=== PATIENT | female | born 1960 | race Caucasian/White ===

== ENCOUNTER 2018-09-30 21:14 | Observation (INO) ==
--- NOTE | 2018-09-30 23:59 | Internal Med History&Physical ---
<Remedios Padron N - Last Filed: 10/01/18 02:12> Date of Encounter: 10/01/18 Time of Encounter: 23:59 Internal Medicine - H&P: HPI Chief complaint: Right LE cellulitis Admitted From: Hospital to Hospital Transfer History of present illness: Ms. Weiner is a 58 year old female with a medical history significant for IV drug use (last used approximately 6 years ago) and prior gastric bypass surgery. Her recent medical history is also significant for lesion in her spine, for which she was referred to oncology by her PCP. She reports that biopsy of this area was unable to be obtained, and she was instructed to follow up with oncology in approximately 6 months; however, she states that she has not had a follow-up appointment as she was not comfortable with this plan after having observed a family member who from cancer less than 3 months after diagnosis. Patient arrived at [facility] as a transfer from the ED at [facility] due to right lower extremity redness, swelling, and tenderness. She states that she scratched her leg on a mental broomstick while cleaning approximately 4 days ago. She states that the area began showing signs of infection within 24 hours of the injury. She received a dose of clindamycin while in the ED. Laboratory studies performed at [facility] demonstrated elevated white blood cell count of 14.7. Labs also showed a severe hypokalemia, prompting patient transfer to [facility] for further evaluation and management. Initial vital signs obtained upon arrival to [facility] were as follows: temperature 98.3, HR 99, RR 16, BP 121/77, and pulse oximetry 95%. Repeat laboratory studies were significant for the following abnormalities: WBC 16.2, hemoglobin 10.7, hematocrit 31.8, sodium 133, potassium 3.0, calcium 7.1, magnesium 1.4, and alkaline phosphatase 127. Patient was started on antibiotic therapy with v ancomycin. Due to her penicillin allergy, the patient was also started on antibiotic therapy with aztreonam. Patient was seen and evaluated at the bedside. She reports noticing development of enlarged, tender supraclavicular, axillary, and inguinal lymph nodes that coincides with development of her right leg infection. She reports having had similar infections in her legs in the past, and reports that her legs often swell. ROS is significant for recent unintentional weight loss, decreased appe tite, subjective chills/fever, intermittent dizziness, sinus congestion, and nonproductive cough. She reports pain in her right lower extremity that is worse with ambulation, and voices pain when attempting to move that extremity. She denies any other acute complaints or concerns at this time. Past Med Surg Social Fam HX - Past Medical History Medical history: no medical history Additional medical history: pneumonia 05/07/16 Psychiatric history: no psych history - Past Surgical History Surgical History: appendectomy, cholecystectomy, hysterectomy, other Additional surgical history: gastric by-pass, L knee surgery - Social History Smoking Status: Current every day smoker Smokeless Tobacco Status: No Alcohol use: none Drug use: IV Drug Use (Last used ~6 years ago) Internal Medicine - H&P: Meds RX: Buprenorphine HCl [Subutex] 8 mg SL TID 05/07/16 [History] Furosemide [Lasix] 40 mg PO DAILY 09/30/18 [History] Gabapentin [Neurontin] 800 mg PO TID PRN 09/30/18 [History] Potassium Chloride [K-Tab ER] 10 meq PO DAILY 09/30/18 [History] Allergy/AdvReac Type Severity Reaction Status Date / Time Penicillins Allergy Intermediate Swelling Verified 05/07/16 18:11 of Lip/Tongue/Throat All Systems PM: A 10-system review of systems was performed and is negative for pertinent findings except as documented above in the HPI. - Constitutional Exam: GENERAL: Pleasant female resting in bed comfortably. She does not appear to be in acute distress. HEENT: Atraumatic and normocephalic. CARDIOVASCULAR: Regular rate and rhythm. S1 and S2 present. No murmurs, gallops, or rubs appreciated. RESPIRATORY: Wheezes and coarse respiratory sounds bilaterally. Chest rises and falls symmetrically with respiration. No accessory muscle use noted. GASTROINTESTINAL: Active bowel sounds x4 quadrants. Abdomen is soft, nontender, and nondistended. EXTREMITIES: 1+ pitting edema in bilateral LE. Right lower extremity is erythematous at and distal to the knee, with increased warmth and edema. Patient is tender to palpation and with movement of the right LE. LYMPH NODES: Tender enlarged supraclavicular, axillary, and inguinal lymph nodes bilaterally. SKIN: Warm, dry, and intact. NEUROLOGIC: Alert and oriented x 3. Patient is cooperative with exam and answers questions appropriately. No apparent focal deficits. Internal Med - H&P Results - Labs CBC & Chem 7: 10/01/18 00:59 10/01/18 00:59 - Assessment and plan (1) Cellulitis Current Visit: No Status: Acute Assessment and plan: Patient has extensive right lower extremity erythema, warmth, and edema. WBC count was elevated at 14.7 at [facility]; repeat CBC demonstrated further elevated WBC count of 16.2. - Continue vancomycin - Aztreonam 200mg IVPB Q8H - CT of right lower extremity pending Qualifiers: Site of cellulitis: extremity Site of cellulitis of extremity: lower extremity Laterality: right Qualified Code(s): L03.115 - Cellulitis of right lower limb (2) Hypokalemia Current Visit: No Status: Acute Assessment and plan: Likely secondary to increased dose of lasix without concomitant increase in supplemental potassium. - Received 50mEq kaylite and 10mEq KCl at [facility] - Additional 40mEq KCl rider pending administration - Repeat electrolyte panel after further KCl administration is complete - Telemetry monitoring for arrhythmias (3) Hypocalcemia Current Visit: Yes Status: Acute Assessment and plan: Serum calcium 7.1, with ionized calcium of 1.02. - Supplementation with calcium gluconate - Repeat electrolyte panels after administration (4) DVT prophylaxis Current Visit: Yes Status: Acute Assessment and plan: - Heparin 5000units SQ Q8H - Time Spent With Patient Total time spent is greater than 50% in coordination of care (as documented) at patient's floor/unit and/or counseling patient: Kristen Vazquez - Last Filed: 10/01/18 03:06> Date of Encounter: 10/01/18 Internal Medicine - H&P: HPI History of present illness: Ms. Weiner is a 58 year old female All Systems PM: A 10-system review of systems was performed and is negative for pertinent findin gs except as documented above in the HPI. - Constitutional Vitals: Temp Pulse Resp BP Pulse Ox 98.3 F 99 16 121/77 95 09/30/18 23:48 09/30/18 23:48 09/30/18 23:48 09/30/18 23:48 09/30/18 23:48 Internal Med - H&P Results - Labs CBC & Chem 7: 10/01/18 00:59 10/01/18 00:59 Labs: Short CBC 10/01/18 Range/Units 00:59 WBC 16.2 H (4.3-11.1) K/mcL Hgb 10.7 L D (11.5-15.4) g/dL Hct 31.8 L (35.3-44.9) % Plt Count 263 (140-400) K/mcL Neutrophils # 14.9 H (1.6-8.9) K/mcL BMP 10/01/18 00:59 Sodium 133 L Potassium 3.0 L Chloride 98 Carbon Dioxide 27 BUN 21 H Creatinine 0.88 Glucose 83 Calcium 7.1 L Liver Function 10/01/18 Range/Units 00:59 Total Bilirubin 0.4 (0.3-1.0) mg/dL AST 8 L (13-39) Units/L ALT 13 (7-52) Units/L Alkaline Phosphatase 127 H (34-104) Units/L Albumin 1.8 L (3.5-5.7) g/dL - Assessment and plan (1) Cellulitis Current Visit: No Status: Acute Qualifiers: Site of cellulitis: extremity Site of cellulitis of extremity: lower extremity Laterality: right Qualified Code(s): L03.115 - Cellulitis of right lower limb (2) Hypokalemia Current Visit: No Status: Acute (3) Hypocalcemia Current Visit: Yes Status: Acute (4) DVT prophylaxis Current Visit: Yes Status: Acute - Time Spent With Patient Total time spent is greater than 50% in coordination of care (as documented) at patient's floor/unit and/or counseling patient: - Attending Attestation Amada Weiner is a 58-year-old woman who reports a past history of substance abuse for which she is now on Suboxone therapy who presents on transfer from [facility] due to right lower extremity redness, swelling and pain. She states that it started after suffering a scratch from a metallic end of a broom stick about 4 days ago and the subsequent day started seeing these inflammatory signs. Last night and [facility] emergency room she was given 1 dose of clindamycin, seen to have severe hypokalemia and some leukocytosis and was referred here for further care. On my assessment she is in no acute distress. She incidentally reports having multiple enlarged lymph nodes of recent in addition to weight loss which she is yet to see a physician about. Her physical exam is remarkable for right lower leg diffuse swelling in erythema with a centimeter sized puncture area on the anterior aspect with active suppuration. Exquisitely tender to touch but no crepitus elicited. Her affect is appropriate and rest of physical exam is documented above by the resident. No reported family history of recurrent infections. We will admit for sepsis due to skin and soft tissue infection. The patient should undergo contrast CT of the leg due to the severity of the current condition and rule out underlying abscess or retained foreign body. Should also undergo Doppler studies to rule out thrombosis that may be a subsequent complication. Escalate antibiotics to vancomycin to cover staph and strep species and we will place on aztreonam for now for gram-negative coverage to include Pseudomonas given the foreign body trauma. Pain control and DVT prophylaxis ordered. Hypocalcemia, hypokalemia and hypomagnesemia are noted should be supplemented accordingly. AKHIL CASAS.
[2018-10-01] MEDS ORDERED: Naloxone 0.4 MG/ML INJ IVP PRN (00:16)
[2018-10-01] MEDS ORDERED: Acetaminophen 325 MG TABLET PO PRN (01:01)
[2018-10-01] MEDS ORDERED: *HR* HYDROcodone/Acet 5/325 mg TABLET PO PRN (01:01)
[2018-10-01] MEDS ORDERED: *HR* OxyCODONE Immed Rel 5 MG TABLET PO PRN (01:01)
[2018-10-01] MEDS ORDERED: Ketorolac 30 MG/ML VIAL IVP ONE (01:02)
[2018-10-01] MEDS ORDERED: Isovue-370 500 ML INFUS..BTL IV ONE (01:02)
[2018-10-01 01:15] LABS: VBG Ionized Calcium 1.02 mmol/L (1.15-1.35)
[2018-10-01 01:16] LABS: Basophils % 0.2 %; Eosinophils % 0.2 %; Hematocrit 31.8 % (35.3-44.9); Hemoglobin 10.7 g/dL (11.5-15.4); Immature Granulocytes % 0.6 % (0-4); Lymphocytes # 0.6 K/mcL (0.6-4.6); Lymphocytes % 3.4 %; Mean Corpuscular HGB Conc 33.6 g/dL (31.6-35.5); Mean Corpuscular Hemoglobin 27.9 pg (28.0-33.3); Mean Platelet Volume 9.3 fL (9.4-12.4); Monocytes # 0.7 K/mcL (0.0-1.3); Monocytes % 4.1 %; Neutrophils # 14.9 K/mcL (1.6-8.9); Platelet Count 263 K/mcL (140-400); Red Blood Count 3.83 M/mcL (3.82-4.97); Red Cell Distribution Width 13.7 % (11.5-14.5); Segmented Neutrophils % 91.5 %
[2018-10-01 01:24] LABS: INR 1.2
[2018-10-01 01:36] LABS: Alanine Aminotransferase 13 Units/L (7-52); Albumin 1.8 g/dL (3.5-5.7); Albumin/Globulin Ratio 0.5 (1.1-2.2); Alkaline Phosphatase 127 Units/L (34-104); Aspartate Amino Transferase 8 Units/L (13-39); BUN/Creatinine Ratio 24 (6-26); Bilirubin,Total 0.4 mg/dL (0.3-1.0); Blood Urea Nitrogen 21 mg/dL (6-20); Calcium 7.1 mg/dL (8.6-10.3); Carbon Dioxide 27 mEq/L (23-29); Chloride 98 mEq/L (98-107); Globulin 3.3 g/dL (2.4-3.5); Glucose 83 mg/dL (70-105); Osmolality,Calculated 278 (280-300); Sodium 133 mEq/L (136-145); Total Protein 5.1 g/dL (6.4-8.9); eGFR For Non-African Americans > 60 (> 60)
[2018-10-01] MEDS ORDERED: Potassium Chloride 40 MEQ, Lidocaine 1% 2 ML in D5% in Water 500 ML IVPB ONE (01:50)
[2018-10-01] MEDS ORDERED: Calcium Gluconate 2,000 MG in 0.9 % Sodium Chloride 100 ML IVPB ONE (01:50)
[2018-10-01] MEDS ORDERED: Magnesium Oxide 400 MG TABLET PO ONE (02:36)
[2018-10-01] MEDS ORDERED: Ipratropium/Albuterol Neb 3 ML IH PRN (02:46)
[2018-10-01] MEDS: *HR* Heparin 5,000 UNIT/ML VIAL SQ SCH ×3 (06:03→21:14)
[2018-10-01] MEDS: Aztreonam 2,000 MG in Water for inj. (sterile) 20 ML 20 ML IVPB SCH ×4 (06:03→23:33)
[2018-10-01] MEDS: *HR* Buprenorphine HCl 8 MG TAB.SUBL SL SCH ×3 (07:44→21:14)
--- NOTE | 2018-10-01 09:43 | Internal Med Progress Note ---
Addendum entered and electronically signed by Marlena Giraldo 10/01/18 18:20: (5.) COPD On exam mild wheezes bilaterally, crackles in the right lung, productive cough Plan: On Duoneb PRN Q4H Original Note: <KristalShannenMarlena M - Last Filed: 10/01/18 17:40> Hospitalist Progress Note - Encounter Date of Encounter: 10/01/18 Time of Encounter: 09:25 - Subjective Interval History: Ms. Weiner is a 58Yo F, hospital day 0, PMH IV drug use(last used about 6 years ago), current smoker, COPD, asthma, gastric bypass surgery and a spinal lesion (referred to oncology has not followed up). She presented to [facility] c/o right lower extremity redness, swelling, and tenderness after scratching her leg on a metal broomstick 4 days prior. Pt was seen and examined at bedside today. She denies fever/chills, fatigue, dizziness, NVD, abdominal pain, SOB, chest pain, or decrease in appetite. She does admit to unintentional weight loss, nasal congestion d/t allergies, productive cough with clear/mcbride sputum, she also states she has pain, edema, warmth and redness in her right lower extremity. Pt says she has enlarged lymph nodes in her supraclavicular, inguinal and axillary regions. - Exam Vitals: Temp Pulse Resp BP Pulse Ox 98.6 F 94 15 103/63 99 10/01/18 06:21 10/01/18 06:21 10/01/18 06:21 10/01/18 06:21 10/01/18 06:21 Exam: General: AAOX3, NAD, answers questions appropriately Cardiovascular: RRR, no murmurs, rubs or gallops Respiratory: mild wheezes bilaterally, crackles in the right lung, productive cough Abdomen: normal BS X4, soft, nondistended, nontender to palpation Extremities: 1+ pitting edema in LE bilaterally. Right lower extremity is erythematous distal to the knee, with increased warmth and edema. Patient is tender to palpation and with movement of the right LE. Draining over the mid- tibial region from site of wound. Lymph: enlarged supraclavicular, axillary and inguinal lymph nodes bilaterally Skin: warm dry and intact - Assessment and Plan (1) Cellulitis Current Visit: No Status: Acute Assessment and Plan: Patient has extensive right lower extremity erythema, warmth, and edema. WBC count was elevated at 14.7 at [facility]; repeat CBC demonstrated further elevat ed WBC count of 16.2 CT of RLE showed 'Non-specific severe subcutaneous edema and skin thickening of the right lower extremity. No evidence of abscess. No acute bone or joint abnormality. Moderate tricompartmental osteoarthritis of the knee. There is a 5 x 5 mm irregular cystic lesion in the medial corner of the talar dome likely representing an OCD.' 10/01/18 - Continue vancomycin - Aztreonam 200mg IVPB Q8H - Blood Cx pending (2) Hypokalemia Current Visit: No Status: Acute Assessment and Plan: Likely secondary to increased dose of lasix without concomitant increase in s upplemental potassium. Potassium 3.3 increased from 3.0 10/01/18 - Received 50mEq kaylite and 10mEq KCl at [facility] - given KCl 40 meq PO - Telemetry monitoring for arrhythmias (3) Hypocalcemia Current Visit: Yes Status: Acute Assessment and Plan: Serum calcium 7.6 increased from 7.1, with ionized calcium of 1.02. Plan: -Supplementation with calcium gluconate d/c -Calcium corrected, will continue to monitor as needed (4) DVT prophylaxis Current Visit: Yes Status: Acute Assessment and Plan: heparin SQ - Time Spent with Patient Total time spent is greater than 50% in coordination of care (as documented) at patient's floor/unit and/or counseling patient: Internal Medicine: Result - Labs CBC & Chem 7: 10/01/18 00:59 10/01/18 11:19 Labs: Short CBC 10/01/18 Range/Units 00:59 WBC 16.2 H (4.3-11.1) K/mcL Hgb 10.7 L D (11.5-15.4) g/dL Hct 31.8 L (35.3-44.9) % Plt Count 263 (140-400) K/mcL Neutrophils # 14.9 H (1.6-8.9) K/mcL BMP 10/01/18 00:59 Sodium 133 L Potassium 3.0 L Chloride 98 Carbon Dioxide 27 BUN 21 H Creatinine 0.88 Glucose 83 Calcium 7.1 L Liver Function 10/01/18 Range/Units 00:59 Total Bilirubin 0.4 (0.3-1.0) mg/dL AST 8 L (13-39) Units/L ALT 13 (7-52) Units/L Alkaline Phosphatase 127 H (34-104) Units/L Albumin 1.8 L (3.5-5.7) g/dL - ABG Interpretation ABG results: PT/INR, D-dimer PT 14.0 Seconds (9.4-12.1) H 10/01/18 00:59 Consult Discharge Plan - Plan Referrals: NONE,PCP [Primary Care Provider] - <Rafi Chua - Last Filed: 10/01/18 18:03> Hospitalist Progress Note - Encounter Date of Encounter: 10/01/18 - Exam Vitals: Temp Pulse Resp BP Pulse Ox 98.0 F 91 14 119/76 100 10/01/18 14:20 10/01/18 14:20 10/01/18 14:20 10/01/18 14:20 10/01/18 14:20 - Assessment and Plan (1) Cellulitis Current Visit: No Status: Acute (2) Hypokalemia Current Visit: No Status: Acute (3) Hypocalcemia Current Visit: Yes Status: Acute (4) DVT prophylaxis Current Visit: Yes Status: Acute - Time Spent with Patient Total time spent is greater than 50% in coordination of care (as documented) at patient's floor/unit and/or counseling patient: Internal Medicine: Result - Labs CBC & Chem 7: 10/01/18 00:59 10/01/18 11:19 Labs: Short CBC 10/01/18 Range/Units 00:59 WBC 16.2 H (4.3-11.1) K/mcL Hgb 10.7 L D (11.5-15.4) g/dL Hct 31.8 L (35.3-44.9) % Plt Count 263 (140-400) K/mcL Neutrophils # 14.9 H (1.6-8.9) K/mcL BMP 10/01/18 10/01/18 00:59 11:19 Sodium 133 L 133 L Potassium 3.0 L 3.3 L Chloride 98 96 L Carbon Dioxide 27 32 H BUN 21 H 19 Creatinine 0.88 0.94 Glucose 83 65 L Calcium 7.1 L 7.6 L Liver Function 10/01/18 Range/Units 00:59 Total Bilirubin 0.4 (0.3-1.0) mg/dL AST 8 L (13-39) Units/L ALT 13 (7-52) Units/L Alkaline Phosphatase 127 H (34-104) Units/L Albumin 1.8 L (3.5-5.7) g/dL - ABG Interpretation ABG results: PT/INR, D-dimer PT 14.0 Seconds (9.4-12.1) H 10/01/18 00:59 - Impressions Impressions Lower Extremity CT 10/01/18 10:40 IMPRESSION: Non-specific severe subcutaneous edema and skin thickening of the right lower extremity. Differential includes cellulitis or lymphedema. No evidence of abscess. No acute bone or joint abnormality. Moderate tricompartmental osteoarthritis of the knee. There is a 5 x 5 mm irregular cystic lesion in the medial corner of the talar dome likely representing an OCD. D/ / 10/01/2018 13:15:26 Junior Neri MD / joce Interpreting Provider: Junior Neri MD - Attending Attestation I saw and independently examined and assessed this patient and I agree with plan per medical student as documented above Ms. Weiner is a 58Yo F, hospital day 0, PMH IV drug use(last used about 6 years ago), current smoker, COPD, asthma, gastric bypass surgery and a spinal lesion (referred to oncology has not followed up). She presented to [facility] c/o right lower extremity redness, swelling, and tenderness after scratching her leg on a metal broomstick 4 days prior. Exam General: AAOX3, NAD, answers questions appropriately Cardiovascular: RRR, no murmurs, rubs or gallops Respiratory: mild wheezes bilaterally, crackles in the right lung, productive cough Abdomen: normal BS X4, soft, nondistended, nontender to palpation Extremities: 1+ pitting edema in LE bilaterally. Right lower extremity is erythematous distal to the knee, with increased warmth and edema. Patient is tender to palpation and with movement of the right LE. Draining over the mid- tibial region from site of wound. Lymph: enlarged supraclavicular, axillary and inguinal lymph nodes bilaterally Skin: warm dry and intact Plan Right lower leg cellulitis. Continue on vanc and aztreonam. CT leg showed no acute findings. Follow up blood cultures. Lower extremity ultrasound to r/o DVT Right arm swelling. Ultrasound to r/o DVT Hypokalemia. Replaced Hypomagnesemia. Replaced <Marlena Giraldo - Last Filed: 10/01/18 17:40> (1) Cellulitis Qualifiers: Site of cellulitis: extremity Site of cellulitis of extremity: lower extremity Laterality: right Qualified Code(s): L03.115 - Cellulitis of right lower limb <Rafi Chua - Last Filed: 10/01/18 18:03> (1) Cellulitis Qualifiers: Site of cellulitis: extremity Site of cellulitis of extremity: lower extremity Laterality: right Qualified Code(s): L03.115 - Cellulitis of right lower limb
[2018-10-01 13:09] LABS: BUN/Creatinine Ratio 20 (6-26); Blood Urea Nitrogen 19 mg/dL (6-20); Calcium 7.6 mg/dL (8.6-10.3); Carbon Dioxide 32 mEq/L (23-29); Chloride 96 mEq/L (98-107); Glucose 65 mg/dL (70-105); Magnesium 1.8 mg/dL (1.6-2.6); Osmolality,Calculated 276 (280-300); Phosphorous 3.6 mg/dL (2.7-4.5); Potassium 3.3 mEq/L (3.5-5.1); Sodium 133 mEq/L (136-145); eGFR For Non-African Americans > 60 (> 60)
[2018-10-01] MEDS: Potassium Chloride Elixir 20 MEQ/15 ML UDC PO SCH ×2 (14:26→17:30)
[2018-10-01] MEDS: Ibuprofen 800 MG TABLET PO PRN (14:28)
--- NOTE | 2018-10-01 17:32 | Electrocardiograph Report ---
[place] [id number] Test Date: 2018-10-01 Pat Name: Amada Weiner Department: 115 Room: 3A31 Gender: F [place] Supervisor: : [id number] Requested By: Remedios Padron Order Number: [id number] Reading MD: Tristen Kay Measurements Intervals [place] Rate: 89 P: 56 GA: 164 QRS: 12 QRSD: 104 T: 68 QT: 377 QTc: 424 Interpretive Statements SINUS RHYTHM NONSPECIFIC T-WAVE ABNORMALITY Electronically Signed On 10-01-2018 17:31:21 EST by Tristen Kay
[2018-10-02] MEDS: Ibuprofen 800 MG TABLET PO PRN ×2 (02:00→08:42)
[2018-10-02] MEDS: *HR* Heparin 5,000 UNIT/ML VIAL SQ SCH ×3 (05:04→21:48)
[2018-10-02] MEDS: Aztreonam 2,000 MG in Water for inj. (sterile) 20 ML 20 ML IVPB SCH ×3 (08:31→23:33)
[2018-10-02] MEDS: *HR* Buprenorphine HCl 8 MG TAB.SUBL SL SCH ×3 (08:32→21:47)
[2018-10-02 08:39] LABS: Basophils % 0.2 %; Eosinophils # 0.1 K/mcL (0.0-0.6); Eosinophils % 0.6 %; Hematocrit 29.5 % (35.3-44.9); Hemoglobin 9.6 g/dL (11.5-15.4); Immature Granulocytes % 1.5 % (0-4); Lymphocytes # 0.8 K/mcL (0.6-4.6); Lymphocytes % 8.3 %; Mean Corpuscular HGB Conc 32.5 g/dL (31.6-35.5); Mean Corpuscular Hemoglobin 27.7 pg (28.0-33.3); Mean Platelet Volume 9.2 fL (9.4-12.4); Monocytes # 0.6 K/mcL (0.0-1.3); Monocytes % 5.9 %; Neutrophils # 8.2 K/mcL (1.6-8.9); Platelet Count 234 K/mcL (140-400); Red Blood Count 3.47 M/mcL (3.82-4.97); Red Cell Distribution Width 14.2 % (11.5-14.5); Segmented Neutrophils % 83.5 %
--- NOTE | 2018-10-02 08:46 | Internal Med Progress Note ---
Hospitalist Progress Note - Encounter Date of Encounter: 10/02/18 Time of Encounter: 08:45 - Exam Vitals: Temp Pulse Resp BP Pulse Ox 97.8 F 82 15 99/60 97 10/02/18 06:22 10/02/18 06:22 10/02/18 06:22 10/02/18 06:22 10/02/18 06:22 Exam: General: AAOX3, NAD, answers questions appropriately Cardiovascular: RRR, no murmurs, rubs or gallops Respiratory: mild wheezes bilaterally, crackles in the right lung, productive cough Abdomen: normal BS X4, soft, nondistended, nontender to palpation Extremities: 1+ pitting edema in LE bilaterally. Right lower extremity is erythematous distal to the knee, with increased warmth and edema. Patient is tender to palpation and with movement of the right LE. Draining over the mid- tibial region from site of wound. Lymph: enlarged supraclavicular, axillary and inguinal lymph nodes bilaterally Skin: warm dry and intact - Assessment and Plan (1) Cellulitis Current Visit: No Status: Acute Assessment and Plan: Patient has extensive right lower extremity erythema, warmth, and edema. WBC count was elevated at 14.7 at [facility]; repeat CBC demonstrated further elevated WBC count of 16.2. Leukocytosis resolved today - Continue vancomycin and Aztreonam (2) Hypokalemia Current Visit: No Status: Acute Assessment and Plan: Likely secondary to increased dose of lasix without concomitant increase in supplemental potassium. Replaced (3) Hypocalcemia Current Visit: Yes Status: Acute Assessment and Plan: Replaced (4) Generalized lymphadenopathy Current Visit: Yes Status: Acute Assessment and Plan: Obtain CT chest abdomen and pelvis Oncology consult if positive for malignancy (5) DVT prophylaxis Current Visit: Yes Status: Acute Assessment and Plan: - Heparin 5000units SQ Q8H - Time Spent with Patient Total time spent is greater than 50% in coordination of care (as documented) at patient's floor/unit and/or counseling patient: Internal Medicine: Result - Labs CBC & Chem 7: 10/02/18 07:53 10/02/18 07:54 Labs: Short CBC 10/02/18 Range/Units 07:53 WBC 9.8 (4.3-11.1) K/mcL Hgb 9.6 L (11.5-15.4) g/dL Hct 29.5 L (35.3-44.9) % Plt Count 234 (140-400) K/mcL Neutrophils # 8.2 (1.6-8.9) K/mcL BMP 10/01/18 11:19 Sodium 133 L Potassium 3.3 L Chloride 96 L Carbon Dioxide 32 H BUN 19 Creatinine 0.94 Glucose 65 L Calcium 7.6 L - ABG Interpretation ABG results: PT/INR, D-dimer PT 14.0 Seconds (9.4-12.1) H 10/01/18 00:59 - Impressions Impressions Lower Extremity CT 10/01/18 10:40 IMPRESSION: Non-specific severe subcutaneous edema and skin thickening of the right lower extremity. Differential includes cellulitis or lymphedema. No evidence of abscess. No acute bone or joint abnormality. Moderate tricompartmental osteoarthritis of the knee. There is a 5 x 5 mm irregular cystic lesion in the medial corner of the talar dome likely representing an OCD. D/ / 10/01/2018 13:15:26 Junior Neri MD / joce Interpreting Provider: Junior Neri MD Consult Discharge Plan - Plan Referrals: Sophie Alvares, [employer] [Advanced Practice Nurse] - (1) Cellulitis Qualifiers: Site of cellulitis: extremity Site of cellulitis of extremity: lower extremity Laterality: right Qualified Code(s): L03.115 - Cellulitis of right lower limb
[2018-10-02 08:54] LABS: Alanine Aminotransferase 12 Units/L (7-52); Albumin 1.5 g/dL (3.5-5.7); Albumin/Globulin Ratio 0.5 (1.1-2.2); Alkaline Phosphatase 126 Units/L (34-104); Aspartate Amino Transferase 6 Units/L (13-39); BUN/Creatinine Ratio 23 (6-26); Bilirubin,Total 0.3 mg/dL (0.3-1.0); Blood Urea Nitrogen 16 mg/dL (6-20); Calcium 7.1 mg/dL (8.6-10.3); Carbon Dioxide 29 mEq/L (23-29); Chloride 103 mEq/L (98-107); Globulin 3.1 g/dL (2.4-3.5); Glucose 62 mg/dL (70-105); Osmolality,Calculated 279 (280-300); Potassium 3.4 mEq/L (3.5-5.1); Sodium 135 mEq/L (136-145); Total Protein 4.6 g/dL (6.4-8.9); eGFR For Non-African Americans > 60 (> 60)
[2018-10-02] MEDS ORDERED: Isovue-370 500 ML INFUS..BTL IV ONE ×2 (09:19→09:20)
--- NOTE | 2018-10-02 17:54 | Cardiothoracic Consult Note ---
Date of Encounter: 10/02/18 Time of Encounter: 17:50 Assessment and Plan (1) Cellulitis Current Visit: No Status: Acute The assessment and plan as outlined above was discussed with the patient and/or family members who expressed understanding and agreement. All questions were answered. The patient has numerous areas of infection. She has cellulitis and soft tissue infection overlying a traumatic injury in her right frances. This is associated with inguinal adenopathy on the right. She also has bilateral sternoclavicular joint swelling which extends into her neck. There appears to be osteomyelitis of her manubrium and upper sternum. There is some soft tissue swelling posterior to the manubrium which may represent cellulitis or possible abscess. She also has osteomyelitis of her thoracic spine. At some point, I would check a transthoracic echocardiogram to rule out endocarditis. Unfortunately, we do not have infectious disease coverage this weekend. I would recommend transfer to the [facility] for further management. She may eventually require surgical drainage of her thoracic spine, sternoclavicular joints and manubrium. She seems to be responding to antibiotics and may not require drainage. This possible that some of this drainage to be done percutaneously in interventional radiology. She needs to be in [place] to have infectious disease coverage and possible orthopedic and/or neurosurgical coverage. Qualifiers: Site of cellulitis: extremity Site of cellulitis of extremity: lower extremity Laterality: right Qualified Code(s): L03.115 - Cellulitis of right lower limb - History of Present Illness History of present illness: Ms. Weiner is a 58 year old female The patient is a 58-year-old female with a previous history of IV heroin abuse. Presently, she is on Subutex. She is status post gastric bypass surgery at [facility]. She presented with trauma to her right lower extremity and infection and cellulitis in her right lower extremity. She states that she did have fever at home. White count is been as high as 16,000. She has a long history of what appears to be osteomyelitis of her thoracic spine. CT scan of the chest reveals collapsed vertebrae in the thoracic spine compatible with osteomyelitis. She also appears to have bilateral sternoclavicular joint infection. There is also infection in the manubrium of the sternum. There is some fluid behind the sternum which may represent phlegmon or abscess. Past medical history is notable for appendectomy, cholecystectomy, hysterectomy and gastric bypass surgery. She is a smoker. Past Med Surg Social Fam HX - Past Medical History Medical history: no medical history Additional medical history: pneumonia 05/07/16 Psychiatric history: no psych history - Past Surgical History Surgical History: appendectomy, cholecystectomy, hysterectomy, other Additional surgical history: gastric by-pass, L knee surgery - Social History Smoking Status: Current every day smoker Smokeless Tobacco Status: No Alcohol use: none Drug use: IV Drug Use (Last used ~6 years ago) Medications and Allergies Buprenorphine HCl [Subutex] 8 mg SL TID 05/07/16 [History] Furosemide [Lasix] 40 mg PO DAILY 09/30/18 [History] Gabapentin [Neurontin] 800 mg PO TID PRN 09/30/18 [History] Potassium Chloride [K-Tab ER] 10 meq PO DAILY 09/30/18 [History] Allergy/AdvReac Type Severity Reaction Status Date / Time Penicillins Allergy Intermediate Swelling Verified 05/07/16 18:11 of Lip/Tongue/Throat All Systems Review: The remainder of the systems were reviewed and are negative Physical Examination Vital Signs, Last 4 Hours Temp Pulse Resp BP Pulse Ox 10/02/18 15:12 98.2 F 92 16 119/77 100 Pupils are equal, round and reactive to light and accommodation. She is edentulous. Neck is supple. Trachea in the midline. She has swelling over both sternoclavicular joints which extends into the bilateral supraclavicular areas. No redness in this area. No redness or fluctuance over the manubrium of the sternum. It is minimally tender. Lungs are clear to percussion and auscultation. Heart is in a regular rate and rhythm. Abdomen is benign. She is status post numerous abdominal surgeries. No tenderness, rebound or guarding. Extremities. She has cellulitis surrounding a traumatic lesion in her right frances. Cranial nerves, motor and sensory intact. Results 10/02/18 07:53 10/02/18 07:54 Lab Results, Last 24 hours 10/02/18 10/02/18 07:53 07:54 WBC 9.8 Hgb 9.6 L Hct 29.5 L Plt Count 234 Sodium 135 L Potassium 3.4 L Chloride 103 Carbon Dioxide 29 BUN 16 Creatinine 0.69 Glucose 62 L Calcium 7.1 L Total Bilirubin 0.3 AST 6 L ALT 12 Alkaline Phosphatase 126 H Consult Discharge Plan - Plan Referrals: Sophie Alvares, TOR [Advanced Practice Nurse] -
--- NOTE | 2018-10-02 20:26 | Orthopedic Consult Note ---
Date of Encounter: 10/02/18 Time of Encounter: 20:08 History of Present Illness Chief complaint: Sternoclavicular joint pain HPI: Ms. Weiner is a 58 year old female with a long standing history of pain and swelling about her sternoclavicular joints bilateral. Patient is very difficult to obtain an appropriate and adequate history from but it appears she has had problems here for several months time. Patient gives a history of having had a thoracic fracture for which infection was suspected. She states that she had multiple attempts to biopsy or thoracic spine with CT guidance without success. She states that she was seen by hematology oncology who recommended repeat scanning in 6 months time. The patient is anxious in regards to this due to the fact that she lost her mother to lung cancer at age 57 and she feels that she is following along a similar course. Patient denies any shakes chills fevers. She denies any obvious septic episodes other than a somewhat current posttraumatic event involving the right lower extremity. Patient does give a history of having unintended weight loss over the past several months. I reviewed the patient's completed history and physical examination as well as complete medical record. Pertinent orthopedic examination reveals fullness about the sternoclavicular joints bilateral. Right appears to be more involved than the left. This is rather firm without evidence of fluid or cystic appearance. There is no sign ificant erythema or induration or inflammatory response or reaction. Minor tenderness is noted. There is tenderness in the manubrium sternum. No gross tenderness in the body of the sternum. Clavicles are intact distally. Patient has a general cachectic appearance reviewed the chest CT scan. There is a pathologic fracture of the manubrium. This appears subacute nature with SPECT and progressive destructive changes. There is some destruction of the end of the right clavicle. There is soft tissue prominence posterior to the manubrium extending into the mediastinum. This is associated with soft tissue changes about both sternoclavicular joints. I reviewed a similar CT scan of the chest from August 2016. There are some subtle changes of the sternoclavicular joints at that time. Hemoglobin is 9.6. WBC is currently 9.8, down from 16.2. Platelet count is 234. ESR 38. CRP is markedly elevated at 254. Nutritional parameters are markedly low. Alkaline phosphatase is high. Impression: Complex destructive changes of bilateral sternoclavicular joints with pathologic fracture of manubrium sternum and associated soft tissue abnormalities Recommendation: It is difficult to discern if these are truly infectious or metastatic in nature. I would recommend the patient be seen and treated at a tertiary care center as I suspect she is going to need infectious disease as well as cardiothoracic surgery and possibly orthopedic surgery for combined treatment. I would not recommend proceeding with biopsy and transfer later, would recommend that all additional workup and possible surgical intervention be performed at a tertiary care center in [place] at your discretion. These are chronic findings and do not require immediate intervention. Thank you for allowing me to see and care for Mrs. Weiner. Sincerely, Lei Whitman,DO Past Med Surg Social Fam HX - Past Medical History Medical history: no medical history Additional medical history: pneumonia 05/07/16 Psychiatric history: no psych history - Past Surgical History Surgical History: appendectomy, cholecystectomy, hysterectomy, other Additional surgical history: gastric by-pass, L knee surgery - Social History Smoking Status: Current every day smoker Smokeless Tobacco Status: No Alcohol use: none Drug use: IV Drug Use (Last used ~6 years ago) Medications and Allergies Buprenorphine HCl [Subutex] 8 mg SL TID 05/07/16 [History] Furosemide [Lasix] 40 mg PO DAILY 09/30/18 [History] Gabapentin [Neurontin] 800 mg PO TID PRN 09/30/18 [History] Potassium Chloride [K-Tab ER] 10 meq PO DAILY 09/30/18 [History] Allergy/AdvReac Type Severity Reaction Status Date / Time Penicillins Allergy Intermediate Swelling Verified 05/07/16 18:11 of Lip/Tongue/Throat All Systems Reviewed: The remainder of the systems were reviewed and are negative Physical Exam - Constitutional Vitals: Temp Pulse Resp BP Pulse Ox 98.3 F 93 16 119/61 97 10/02/18 19:24 10/02/18 19:24 10/02/18 19:24 10/02/18 19:24 10/02/18 19:24 Results - Labs Result Diagrams: 10/02/18 07:53 10/02/18 07:54 Labs: Abnormal lab results RBC 3.47 M/mcL (3.82-4.97) L 10/02/18 07:53 Hgb 9.6 g/dL (11.5-15.4) L 10/02/18 07:53 Hct 29.5 % (35.3-44.9) L 10/02/18 07:53 MCH 27.7 pg (28.0-33.3) L 10/02/18 07:53 MPV 9.2 fL (9.4-12.4) L 10/02/18 07:53 ESR 38 mm/hr (0-15) H 10/02/18 15:07 PT 14.0 Seconds (9.4-12.1) H 10/01/18 00:59 Sodium 135 mEq/L (136-145) L 10/02/18 07:54 Potassium 3.4 mEq/L (3.5-5.1) L 10/02/18 07:54 Glucose 62 mg/dL (70-105) L 10/02/18 07:54 Calculated Osmolality 279 (280-300) L 10/02/18 07:54 Calcium 7.1 mg/dL (8.6-10.3) L 10/02/18 07:54 Venous Ioniz Calcium 1.02 mmol/L (1.15-1.35) L 10/01/18 01:13 AST 6 Units/L (13-39) L 10/02/18 07:54 Alkaline Phosphatase 126 Units/L (34-104) H 10/02/18 07:54 C-Reactive Protein 254 mg/L (Less than 10) H 10/02/18 15:07 Serum Total Protein 4.6 g/dL (6.4-8.9) L 10/02/18 07:54 Albumin 1.5 g/dL (3.5-5.7) L 10/02/18 07:54 Albumin/Globulin Ratio 0.5 (1.1-2.2) L 10/02/18 07:54 Vancomycin Trough 12 mcg/mL (5-10) H 10/02/18 13:00 H & H 10/02/18 Range/Units 07:53 Hgb 9.6 L (11.5-15.4) g/dL Hct 29.5 L (35.3-44.9) % All other labs normal. Consult Discharge Plan - Plan Referrals: Sophie Alvares, PILLOWCASE FOLDER [Advanced Practice Nurse] -
[2018-10-03 04:51] LABS: Basophils % 0.3 %; Eosinophils # 0.1 K/mcL (0.0-0.6); Eosinophils % 0.8 %; Hematocrit 30.1 % (35.3-44.9); Hemoglobin 9.5 g/dL (11.5-15.4); Immature Granulocytes % 0.6 % (0-4); Lymphocytes # 0.8 K/mcL (0.6-4.6); Lymphocytes % 10.1 %; Mean Corpuscular HGB Conc 31.6 g/dL (31.6-35.5); Mean Corpuscular Hemoglobin 27.7 pg (28.0-33.3); Mean Corpuscular Volume 87.8 fL (83.0-100.0); Mean Platelet Volume 9.4 fL (9.4-12.4); Monocytes # 0.4 K/mcL (0.0-1.3); Neutrophils # 6.5 K/mcL (1.6-8.9); Platelet Count 225 K/mcL (140-400); Red Blood Count 3.43 M/mcL (3.82-4.97); Red Cell Distribution Width 14.5 % (11.5-14.5); Segmented Neutrophils % 83.2 %
[2018-10-03 05:05] VITALS: BP 109/72
[2018-10-03] MEDS: *HR* Heparin 5,000 UNIT/ML VIAL SQ SCH (05:19)
[2018-10-03 05:47] LABS: BUN/Creatinine Ratio 20 (6-26); Blood Urea Nitrogen 12 mg/dL (6-20); Calcium 7.1 mg/dL (8.6-10.3); Carbon Dioxide 28 mEq/L (23-29); Chloride 104 mEq/L (98-107); Glucose 84 mg/dL (70-105); Magnesium 1.7 mg/dL (1.6-2.6); Osmolality,Calculated 283 (280-300); Phosphorous 3.1 mg/dL (2.7-4.5); Potassium 3.5 mEq/L (3.5-5.1); Sodium 137 mEq/L (136-145); eGFR For Non-African Americans > 60 (> 60)
--- NOTE | 2018-10-03 08:42 | Internal Med Progress Note ---
Hospitalist Progress Note - Encounter Date of Encounter: 10/03/18 Time of Encounter: 08:40 - Exam Vitals: Temp Pulse Resp BP Pulse Ox 98.3 F 78 15 109/72 93 10/03/18 05:04 10/03/18 05:04 10/03/18 05:04 10/03/18 05:04 10/03/18 05:04 Exam: General: AAOX3, NAD, answers questions appropriately Cardiovascular: RRR, no murmurs, rubs or gallops Respiratory: mild wheezes bilaterally, crackles in the right lung, productive cough Abdomen: normal BS X4, soft, nondistended, nontender to palpation Extremities: 1+ pitting edema in LE bilaterally. Right lower extremity is erythematous distal to the knee, with increased warmth and edema. Patient is tender to palpation and with movement of the right LE. Draining over the mid- tibial region from site of wound. Lymph: enlarged supraclavicular, axillary and inguinal lymph nodes bilaterally Skin: warm dry and intact - Assessment and Plan (1) Septic arthritis Status: Acute Assessment and Plan: Pt has hx of IV drug abuse and CT chest done to r/o malignancy showed septic arthritis and osteomyelitis of the right sternoclavicular joint and manubrium and non displaced patholgy fracture of the manubrium And possible abscesses in the anterior mediastinum. Previous MRI(in 2016) showed thoracic spine osteomyelitis. Unclear if this was ever addressed. Seen by ortho and CT surgery who recommend transfer to tertiary center for further management (2) Osteomyelitis Status: Acute Assessment and Plan: Pt has hx of IV drug abuse and CT chest done to r/o malignancy showed septic arthritis and osteomyelitis of the right sternoclavicular joint and manubrium and non displaced patholgy fracture of the manubrium And possible abscesses in the anterior mediastinum. Seen by ortho and CT surgery who recommend transfer to tertiary center for further management (3) Cellulitis Status: Acute Assessment and Plan: Patient has extensive right lower extremity erythema, warmth, and edema. WBC count was elevated at 14.7 at [facility]; repeat CBC demonstrated further elevated WBC count of 16.2. Leukocytosis resolved today Improving on vanc and aztreonam (4) Hypokalemia Status: Acute Assessment and Plan: Likely secondary to increased dose of lasix without concomitant increase in supplemental potassium. Replaced (5) Hypocalcemia Status: Acute Assessment and Plan: Replaced (6) DVT prophylaxis Status: Acute Assessment and Plan: - Heparin 5000units SQ Q8H - Time Spent with Patient Total time spent is greater than 50% in coordination of care (as documented) at patient's floor/unit and/or counseling patient: Internal Medicine: Result - Labs CBC & Chem 7: 10/03/18 04:30 10/03/18 04:30 Labs: Short CBC 10/02/18 10/03/18 Range/Units 07:53 04:30 WBC 9.8 7.8 (4.3-11.1) K/mcL Hgb 9.6 L 9.5 L (11.5-15.4) g/dL Hct 29.5 L 30.1 L (35.3-44.9) % Plt Count 234 225 (140-400) K/mcL Neutrophils # 8.2 6.5 (1.6-8.9) K/mcL BMP 10/02/18 10/03/18 07:54 04:30 Sodium 135 L 137 Potassium 3.4 L 3.5 Chloride 103 104 Carbon Dioxide 29 28 BUN 16 12 Creatinine 0.69 0.59 L Glucose 62 L 84 Calcium 7.1 L 7.1 L Liver Function 10/02/18 Range/Units 07:54 Total Bilirubin 0.3 (0.3-1.0) mg/dL AST 6 L (13-39) Units/L ALT 12 (7-52) Units/L Alkaline Phosphatase 126 H (34-104) Units/L Albumin 1.5 L (3.5-5.7) g/dL - ABG Interpretation ABG results: PT/INR, D-dimer PT 14.0 Seconds (9.4-12.1) H 10/01/18 00:59 - Impressions Impressions Lower Extremity CT 10/01/18 10:40 IMPRESSION: Non-specific severe subcutaneous edema and skin thickening of the right lower extremity. Differential includes cellulitis or lymphedema. No evidence of abscess. No acute bone or joint abnormality. Moderate tricompartmental osteoarthritis of the knee. There is a 5 x 5 mm irregular cystic lesion in the medial corner of the talar dome likely representing an OCD. D/ / 10/01/2018 13:15:26 Junior Neri MD / joce Interpreting Provider: Junior Neri MD Abdomen/Pelvis CT 10/02/18 09:19 IMPRESSION: 1. Findings are most compatible with septic arthritis and acute osteomyelitis involving the sternoclavicular joints predominately the right, as well as the manubrium. There is a nondisplaced pathologic fracture of the manubrium as well. Several low-attenuation foci extending into the anterior mediastinum as well as the neck likely reflecting abscesses. 2. Bronchial wall thickening with a few foci of mucoid impaction and tree-in-bud opacities predominate within the lung bases suspicious for an infectious bronchiolitis. Aspiration can be a consideration. 3. Gas and contrast is noted within the excluded portion the stomach following gastric bypass. An underlying fistula cannot be excluded. Findings could also be related to reflux of gas and air into the pancreatic biliary limb. 4. Anasarca with extensive subcutaneous edema. Results were called by Dr. Rachel Pierce MD to Rafi Chua on 10/02/2018 at 14:57. D/ / 10/02/2018 15:09:48 Rachel Pierce MD / [email or web address] Interpreting Provider: Rachel Pierce MD Chest CT 10/02/18 09:20 IMPRESSION: 1. Findings are most compatible with septic arthritis and acute osteomyelitis involving the sternoclavicular joints predominately the right, as well as the manubrium. There is a nondisplaced pathologic fracture of the manubrium as well. Several low-attenuation foci extending into the anterior mediastinum as well as the neck likely reflecting abscesses. 2. Bronchial wall thickening with a few foci of mucoid impaction and tree-in-bud opacities predominate within the lung bases suspicious for an infectious bronchiolitis. Aspiration can be a consideration. 3. Gas and contrast is noted within the excluded portion the stomach following gastric bypass. An underlying fistula cannot be excluded. Findings could also be related to reflux of gas and air into the pancreatic biliary limb. 4. Anasarca with extensive subcutaneous edema. Results were called by Dr. Rachel Pierce MD to Rafi Chua on 10/02/2018 at 14:57. D/ / 10/02/2018 15:09:48 Rachel Pierce MD / bob Interpreting Provider: Rachel Pierce MD Consult Discharge Plan - Plan Referrals: Sophie Alvares, HEEL CASER [Advanced Practice Nurse] - (1) Septic arthritis Qualifiers: Septic arthritis location: shoulder (2) Osteomyelitis Qualifiers: Osteomyelitis location: shoulder (3) Cellulitis Qualifiers: Site of cellulitis: extremity Site of cellulitis of extremity: lower extremity Laterality: right Qualified Code(s): L03.115 - Cellulitis of right lower limb
[2018-10-03] MEDS: *HR* Buprenorphine HCl 8 MG TAB.SUBL SL SCH (08:56)
[2018-10-03] MEDS: Aztreonam 2,000 MG in Water for inj. (sterile) 20 ML 20 ML IVPB SCH (08:57)
[2018-10-03 09:00] LABS: Amphetamine Screen,Urine Negative ng/mL (Cutoff=1000); Barbiturate Screen,Urine Negative ng/mL (Cutoff=200); Benzodiazepines Screen,Urine Negative ng/mL (Cutoff=200); Cannabinoid Screen,Urine Negative ng/mL (Cutoff = 50); Cocaine Screen,Urine Negative ng/mL (Cutoff= 300); Opiate Screen,Urine Negative ng/mL (Cutoff=300); Phencyclidine Screen,Urine Negative ng/mL (Cutoff=25)
--- NOTE | 2018-10-03 10:55 | Discharge Summary ---
Orders not resulted at time of discharge: Pending orders 10/01/18 01:46 Culture,Blood [BC] Stat 10/02/18 01:58 Zinc AM 0400 10/02/18 15:45 EV echocardiogram Routine 10/04/18 04:00 Basic Metabolic Panel AM 0400 CBC [Complete Blood Count] [HEME] AM 0400 Magnesium AM 0400 Phosphorous AM 0400 10/05/18 04:00 Basic Metabolic Panel AM 0400 CBC [Complete Blood Count] [HEME] AM 0400 Magnesium AM 0400 Phosphorous AM 0400 10/06/18 04:00 Basic Metabolic Panel AM 0400 CBC [Complete Blood Count] [HEME] AM 0400 Magnesium AM 0400 Phosphorous AM 0400 10/07/18 04:00 Basic Metabolic Panel AM 0400 CBC [Complete Blood Count] [HEME] AM 0400 Magnesium AM 0400 Phosphorous AM 0400 10/08/18 04:00 Basic Metabolic Panel AM 0400 CBC [Complete Blood Count] [HEME] AM 0400 Magnesium AM 0400 Phosphorous AM 0400 Date of Encounter: 10/03/18 Time of Encounter: 10:00 - Discharge Diagnosis (1) Septic arthritis Priority: Primary Status: Acute Assessment and Plan: 58 year old female with a medical history significant for IV drug use, says she has quit but used 3 times in the last year and prior gastric bypass surgery. Her recent medical history is also significant for lesion in her spine, for which she was referred to oncology by her PCP. She reports that biopsy of this area was unable to be obtained, and she was instructed to follow up with oncology in approximately 6 months; however, she states that she has not had a follow-up appointment as she was not comfortable with this plan after having observed a family member who from cancer less than 3 months after diagnosis. Patient arrived at [facility] as a transfer from the ED at [place] due to right lower extremity redness, swelling, and tenderness. She states that she scratched her leg on a mental broomstick while cleaning approximately 4 days ago. She states that the area began showing signs of infection within 24 hours of the injury. She received a dose of clindamycin while in the ED She was assessed with right lower extremity celluilitis and started on vanc and aztreonam with improvement in her cellulitis. She complained of axillary lymphadenopathy and unintentional weight loss and a CT chest done to r/o malignancy showed septic arthritis and osteomyelitis of the right sternoclavicular joint and manubrium, and a non displaced patholgy fracture of the manubrium and possible abscesses in the anterior mediastinum. Previous MRI(in 2016) also showed thoracic spine osteomyelitis. It is unclear if this was ever addressed. She was seen by orthopedic surgery and CT surgery who recommended transfer to a tertiary center for all biopsy and possible surgical work up due to case complexity and also to be seen by infectious diseases. [facility] has accepted the patient for transfer. 35minutes was spent discharging this patient Qualifiers: Septic arthritis location: shoulder Qualified Code(s): M00.9 - Pyogenic arthritis, unspecified (2) Osteomyelitis Priority: Primary Status: Acute Qualifiers: Osteomyelitis location: shoulder Qualified Code(s): M86.9 - Osteomyelitis, unspecified (3) Cellulitis Priority: Primary Status: Acute Qualifiers: Site of cellulitis: extremity Site of cellulitis of extremity: lower extremity Laterality: right Qualified Code(s): L03.115 - Cellulitis of right lower limb (4) Hypokalemia Priority: Primary Status: Acute (5) Hypocalcemia Priority: Primary Status: Acute (6) Generalized lymphadenopathy Priority: Primary Status: Acute (7) DVT prophylaxis Priority: Primary Status: Acute Hospital course: Ms. Weiner is a 58 year old female - Time Spent with Patient Total time spent providing and/or coordinating discharge services: - Discharge Medications Home Medications: Buprenorphine HCl [Subutex] 8 mg SL TID 05/07/16 [History] Furosemide [Lasix] 40 mg PO DAILY 09/30/18 [History] Gabapentin [Neurontin] 800 mg PO TID PRN 09/30/18 [History] Potassium Chloride [K-Tab ER] 10 meq PO DAILY 09/30/18 [History] Allergies/Adverse Reactions: Allergy/AdvReac Type Severity Reaction Status Date / Time Penicillins Allergy Intermediate Swelling Verified 05/07/16 18:11 of Lip/Tongue/Throat Date of admission: 09/30/18 23:29 Primary care physician: PCP NONE Consults: 10/02/18 09:20 Consult to Oncology [CONS] Routine Consulting Provider: Oncology [facility] Reason for Consult: complains of unintentional weightloss , complains of generalized lymphadenopathy Call Completed: No 10/02/18 15:05 Consult to Orthopedic Surgery [CONS] Routine Consulting Provider: Orthopedic and Sports Medicine Reason for Consult: septic arthritis Call Completed: Yes 10/02/18 15:06 Consult to Infectious Diseases [CONS] Routine Consulting Provider: Infectious Disease Alicia Reason for Consult: septic arthritis Call Completed: Yes - Constitutional Vitals: Temp Pulse Resp BP Pulse Ox 98.3 F 78 15 109/72 93 10/03/18 05:04 10/03/18 05:04 10/03/18 05:04 10/03/18 05:04 10/03/18 05:04 Exam: General: AAOX3, NAD, answers questions appropriately Cardiovascular: RRR, no murmurs, rubs or gallops Respiratory: mild wheezes bilaterally, crackles in the right lung, productive cough Abdomen: normal BS X4, soft, nondistended, nontender to palpation Extremities: 1+ pitting edema in LE bilaterally. Right lower extremity is erythematous distal to the knee, with increased warmth and edema. Patient is tender to palpation and with movement of the right LE. Draining over the mid- tibial region from site of wound. Lymph: enlarged supraclavicular, axillary and inguinal lymph nodes bilaterally Skin: warm dry and intact - Patient Status Disposition: Transfer Short-Term Hosp Condition: Good - Discharge Instructions Follow Up With: Sophie Alvares, FUSE ASSEMBLER [Advanced Practice Nurse] -
== END 2018-10-03 11:35 | disposition short-term general hospital (02) ==
LOC: 3ANU
PROVIDERS: ADMIT Internal Medicine; ATTEND Internal Medicine

== ENCOUNTER 2021-08-17 04:22 | Inpatient (IN) ==
[2021-08-17] MEDS ORDERED: Naloxone 0.4 MG/ML INJ IVP PRN (12:57)
[2021-08-17] MEDS ORDERED: Ondansetron 4 MG/2 ML VIAL IVP PRN (12:57)
[2021-08-17] MEDS ORDERED: Perflutren Lipid Microsphere 1.3 ML in 0.9 % Sodium Chloride 8.7 ML IVP PRN (13:17)
[2021-08-17] MEDS ORDERED: Dextrose Gel 15 GM/37.5 ML TUBE PO PRN ×2 (13:18)
[2021-08-17] MEDS ORDERED: levoFLOXacin 750 MG/150 ML 750 MG/150 ML BAG IVPB SCH ×2 (14:00)
[2021-08-17] MEDS ORDERED: Vancomycin 1,500 MG/265 ML IV.SOLN IVPB SCH (14:00)
[2021-08-17] MEDS: Albumin 25% 25gram/100mL 25 GM/100 ML IV.SOLN IVPB SCH ×2 (14:23→21:52)
[2021-08-17] MEDS ORDERED: Vancomycin 1,250 MG/262.5 ML IV.SOLN IVPB SCH (15:00)
[2021-08-17] MEDS: *HR* Dextrose 50 % in Water (Syg) 50 ML SYRINGE IVP PRN ×4 (15:12→21:29)
[2021-08-17 15:28] LABS: INR 1.8; Prothrombin Time 19.8 Seconds (9.4-12.1)
[2021-08-17 15:31] LABS: Activated Partial Thrombo Time 40.9 Seconds (26.0-36.0)
[2021-08-17 15:35] LABS: Basophils % 0.2 %; Eosinophils % 0.2 %; Hematocrit 35.1 % (35.3-44.9); Hemoglobin 9.7 g/dL (11.5-15.4); Immature Granulocytes % 1.9 % (0-4); Lymphocytes # 0.2 K/mcL (0.6-4.6); Lymphocytes % 2.2 %; Mean Corpuscular HGB Conc 27.6 g/dL (31.6-35.5); Mean Corpuscular Hemoglobin 19.8 pg (28.0-33.3); Mean Corpuscular Volume 71.5 fL (83.0-100.0); Monocytes # 0.3 K/mcL (0.0-1.3); Monocytes % 2.8 %; Nucleated Red Blood Cells 0.4 /100 WBC (0); Red Blood Count 4.91 M/mcL (3.82-4.97); Red Cell Distribution Width 21.3 % (11.5-14.5); Segmented Neutrophils % 92.7 %; White Blood Count 9.4 K/mcL (4.3-11.1)
[2021-08-17 15:36] LABS: Platelet Count 34 K/mcL (140-400)
[2021-08-17 15:37] LABS: Neutrophils # 8.7 K/mcL (1.6-8.9)
[2021-08-17 15:43] LABS: Troponin I 0.06 ng/mL (< 0.04)
[2021-08-17 16:10] LABS: Hepatitis B Surface Antigen Nonreactive (Nonreactive)
[2021-08-17 16:22] LABS: ABG Base Excess -11 mEq/L (-2 to 3); ABG HCO3 16 mEq/L (21-27); ABG Oxygen Saturation 87 % (95-98); ABG PCO2 41 mmHg (35-45); ABG PO2 64 mmHg (85-104); ABG TCO2 18 mEq/L (20-26)
[2021-08-17 16:38] LABS: Alanine Aminotransferase 6 Units/L (7-52); Albumin 2.2 g/dL (3.5-5.7); Albumin/Globulin Ratio 0.6 (1.1-2.2); Alkaline Phosphatase 587 Units/L (34-104); Aspartate Amino Transferase 22 Units/L (13-39); BUN/Creatinine Ratio 16 (6-26); Bilirubin,Total 2.4 mg/dL (0.3-1.0); Blood Urea Nitrogen 51 mg/dL (6-20); Calcium 7.3 mg/dL (8.6-10.3); Carbon Dioxide 15 mEq/L (23-29); Chloride 97 mEq/L (98-107); Creatine Kinase 23 Units/L (30-223); Globulin 3.9 g/dL (2.4-3.5); Glucose 61 mg/dL (70-105); Lactate Dehydrogenase 534 Units/L (140-271); Lipase 6 Units/L (11-82); Osmolality,Calculated 286 (280-300); Phosphorous 5.4 mg/dL (2.7-4.5); Potassium 3.9 mEq/L (3.5-5.1); Salicylate < 2.5 mg/dL (15.0-30.0); Sodium 132 mEq/L (136-145); Thyroid Stimulating Hormone 6.193 mcIU/mL (0.340-5.600); Total Protein 6.1 g/dL (6.4-8.9); Transferrin 107 mg/dL (203-362); eGFR For African Americans 18 (> 60); eGFR For Non-African Americans 15 (> 60)
[2021-08-17 16:39] LABS: % Iron Saturation 47 % (15-50); Hepatitis B Core IgM Nonreactive (Nonreactive); Iron 70 mcg/dL (50-170)
[2021-08-17 16:41] LABS: Hepatitis A Antibody IgM Nonreactive (Nonreactive)
[2021-08-17] MEDS: D5% in Water 1,000 ML IVC SCH (17:13)
[2021-08-17] MEDS: Pantoprazole 40 MG VIAL IVP SCH (17:13)
[2021-08-17 17:17] LABS: Folate 3.5 ng/mL (3.0-16.0)
[2021-08-17 17:55] LABS: Ethanol < 10 mg/dL (Less than 10)
[2021-08-17 17:58] LABS: Adenovirus Not Detected (Not Detect); Bordetella Pertussis Not Detected (Not Detect); Chlamydophila pneumoniae Not Detected (Not Detect); Coronavirus 229E Not Detected (Not Detect); Coronavirus HKU1 Not Detected (Not Detect); Coronavirus NL63 Not Detected (Not Detect); Coronavirus OC43 Not Detected (Not Detect); Human Metapneumovirus Not Detected (Not Detect); Human Rhinovirus/Enterovirus Not Detected (Not Detect); Influenza A Subtype 2009 H1 Not Detected (Not Detect); Influenza B Not Detected (Not Detect); Mycoplasma pneumoniae Not Detected (Not Detect); Parainfluenza Virus 1 Not Detected (Not Detect); Parainfluenza Virus 2 Not Detected (Not Detect); Parainfluenza Virus 3 Not Detected (Not Detect); Parainfluenza Virus 4 Not Detected (Not Detect); Respiratory Syncytial Virus Not Detected (Not Detect); SARS-CoV-2 Not Detected (Not Detect)
[2021-08-17 18:35] LABS: Hepatitis C Virus Antibody Reactive (Nonreactive)
[2021-08-17 21:26] LABS: Bacteria,Urine Few per hpf (None-Few); Bilirubin,Urine Small (Negative); Blood,Urine Large (Negative); Clarity,Urine Ex.Turbid (Clear); Color,Urine Dark-Orange (Yellow); Glucose,Urine (UA) 30 mg/dL (Normal); Hyaline Casts,Urine Few per lpf (None Seen); Ketones,Urine Negative (Negative); Leukocyte Esterase,Urine Trace (Negative); Mucus,Urine Few per lpf (None-Few); Nitrite,Urine Negative (Negative); PH,Urine 5.5 pH Units (5.0-8.0); Protein,Urine 100 mg/dL (Neg-Trace); RBC,Urine TNTC per hpf (0-3); Renal Epithelial Cells,Urine Few per hpf (None-Few); Specific Gravity,Urine 1.029 (1.010-1.025); Squamous Epithelial Cell,Urine Moderate per hpf (None-Few); Transitional Epi Cells,Urine Few per hpf (None-Few); Urobilinogen,Urine >=8.0 mg/dL (Normal)
[2021-08-17] MEDS: Ipratropium/Albuterol Neb 3 ML IH SCH (21:45)
[2021-08-17 23:32] LABS: Amphetamine Screen,Urine Positive ng/mL (Cutoff=1000); Barbiturate Screen,Urine Negative ng/mL (Cutoff=200); Benzodiazepines Screen,Urine Negative ng/mL (Cutoff=200); Cannabinoid Screen,Urine Negative ng/mL (Cutoff = 50); Cocaine Screen,Urine Negative ng/mL (Cutoff= 300); Opiate Screen,Urine Negative ng/mL (Cutoff=300); Phencyclidine Screen,Urine Negative ng/mL (Cutoff=25)
[2021-08-17] MEDS: *HR* Dextrose 50 % in Water (Vial) 50 ML VIAL IVP PRN (23:41)
[2021-08-18] MEDS: *HR* Dextrose 50 % in Water (Vial) 50 ML VIAL IVP PRN ×6 (03:35→21:02)
[2021-08-18] MEDS: Ipratropium/Albuterol Neb 3 ML IH SCH ×4 (04:16→21:05)
[2021-08-18] MEDS: D5% in Water 1,000 ML IVC PRN ×2 (05:35→16:22)
[2021-08-18] MEDS: Albumin 25% 25gram/100mL 25 GM/100 ML IV.SOLN IVPB SCH ×3 (05:36→22:02)
[2021-08-18 05:37] LABS: Alanine Aminotransferase 5 Units/L (7-52); Albumin 2.5 g/dL (3.5-5.7); Albumin/Globulin Ratio 0.8 (1.1-2.2); Alkaline Phosphatase 640 Units/L (34-104); Aspartate Amino Transferase 29 Units/L (13-39); BUN/Creatinine Ratio 16 (6-26); Blood Urea Nitrogen 55 mg/dL (6-20); Calcium 7.4 mg/dL (8.6-10.3); Carbon Dioxide 16 mEq/L (23-29); Chloride 96 mEq/L (98-107); Cholesterol 40 mg/dL (< 200); Glucose 82 mg/dL (70-105); HDL Cholesterol < 3 mg/dL (40-59); Osmolality,Calculated 284 (280-300); Potassium 3.8 mEq/L (3.5-5.1); Sodium 130 mEq/L (136-145); Total Protein 5.5 g/dL (6.4-8.9); Triglycerides 73 mg/dL (< 150); eGFR For African Americans 17 (> 60); eGFR For Non-African Americans 14 (> 60)
[2021-08-18] MEDS: Pantoprazole 40 MG VIAL IVP SCH ×2 (05:37→17:26)
[2021-08-18 05:45] LABS: INR 1.9
[2021-08-18 05:59] LABS: Nucleated Red Blood Cells 0.7 /100 WBC (0)
[2021-08-18 06:01] LABS: Hematocrit 29.8 % (35.3-44.9); Hemoglobin 8.2 g/dL (11.5-15.4); Immature Platelets 5.9 % (1.1-6.1); Mean Corpuscular HGB Conc 27.5 g/dL (31.6-35.5); Mean Corpuscular Hemoglobin 19.7 pg (28.0-33.3); Mean Corpuscular Volume 71.6 fL (83.0-100.0); Monocytes # 0.2 K/mcL (0.0-1.3); Red Blood Count 4.16 M/mcL (3.82-4.97); Red Cell Distribution Width 21.1 % (11.5-14.5); White Blood Count 7.6 K/mcL (4.3-11.1)
[2021-08-18 06:30] LABS: Platelet Count 23 K/mcL (140-400)
[2021-08-18 08:26] LABS: Lymphocytes # 0.6 K/mcL (0.6-4.6); Neutrophils # 6.8 K/mcL (1.6-8.9)
[2021-08-18 08:27] LABS: Platelet Estimate Marked Decrease (Normal)
[2021-08-18] MEDS: Albumin 25% 25gram/100mL 25 GM/100 ML IV.SOLN IVC SCH ×2 (09:15→11:22)
[2021-08-18 10:45] LABS: ABG Base Excess -13 mEq/L (-2 to 3); ABG HCO3 15 mEq/L (21-27); ABG Oxygen Saturation 93 % (95-98); ABG PCO2 40 mmHg (35-45); ABG PH 7.19 pH Units (7.32-7.45); ABG PO2 82 mmHg (85-104); ABG TCO2 16 mEq/L (20-26)
[2021-08-18] MEDS ORDERED: 0.9 % Sodium Chloride 1,000 ML IVC SCH (11:00)
[2021-08-18 11:32] LABS: Immature Reticulocyte % 9.3 % (11.0-38.0); Retculocyte # 0.03 M/mcL (0.05-0.10); Reticulocyte % 0.7 % (1.6-2.8)
[2021-08-18] MEDS: Folic Acid 1 MG TABLET PO SCH (16:21)
[2021-08-18] MEDS ORDERED: 0.9 % Sodium Chloride 500 ML IVC ONE (16:38)
[2021-08-18] MEDS: D5% in Water 1,000 ML IVC SCH (17:16)
[2021-08-18] MEDS ORDERED: Vancomycin 1,250 MG/262.5 ML IV.SOLN IVPB ONE (22:00)
[2021-08-19] MEDS ORDERED: 0.9 % Sodium Chloride 1,000 ML IVC SCH (02:30)
[2021-08-19] MEDS: *HR* Dextrose 50 % in Water (Vial) 50 ML VIAL IVP PRN (02:37)
[2021-08-19] MEDS ORDERED: 0.9 % Sodium Chloride 250 ML IV ONE (02:56)
[2021-08-19 03:28] LABS: Mean Corpuscular Volume 71.4 fL (83.0-100.0); Red Cell Distribution Width 21.4 % (11.5-14.5)
[2021-08-19 03:30] LABS: Basophils % 0.2 %; Eosinophils # 0.1 K/mcL (0.0-0.6); Eosinophils % 1.3 %; Hematocrit 26.5 % (35.3-44.9); Hemoglobin 7.4 g/dL (11.5-15.4); Immature Platelets 10.2 % (1.1-6.1); Lymphocytes # 0.2 K/mcL (0.6-4.6); Lymphocytes % 2.5 %; Mean Corpuscular HGB Conc 27.9 g/dL (31.6-35.5); Mean Corpuscular Hemoglobin 19.9 pg (28.0-33.3); Monocytes # 0.2 K/mcL (0.0-1.3); Monocytes % 3.2 %; Neutrophils # 5.6 K/mcL (1.6-8.9); Nucleated Red Blood Cells 1.3 /100 WBC (0); Red Blood Count 3.71 M/mcL (3.82-4.97); Retculocyte # 0.03 M/mcL (0.05-0.10); Reticulocyte % 0.7 % (1.6-2.8); Segmented Neutrophils % 88.8 %; White Blood Count 6.3 K/mcL (4.3-11.1)
[2021-08-19] MEDS: D5% in Lactated Ringers 1,000 ML IVC SCH ×2 (03:34→11:24)
[2021-08-19 03:36] LABS: Uric Acid 10.3 mg/dL (2.3-7.6)
[2021-08-19 03:38] LABS: Albumin 3.1 g/dL (3.5-5.7); Albumin/Globulin Ratio 1.2 (1.1-2.2); Bilirubin,Total 3.7 mg/dL (0.3-1.0); Calcium 7.9 mg/dL (8.6-10.3); Globulin 2.6 g/dL (2.4-3.5); Magnesium 1.8 mg/dL (1.6-2.6); Phosphorous 4.1 mg/dL (2.7-4.5); Platelet Count 14 K/mcL (140-400); Potassium 3.7 mEq/L (3.5-5.1); Total Protein 5.7 g/dL (6.4-8.9)
[2021-08-19 03:46] LABS: Complement C3 85 mg/dL (87-200)
[2021-08-19] MEDS: Ipratropium/Albuterol Neb 3 ML IH SCH ×4 (04:04→22:54)
[2021-08-19 04:06] LABS: Hypochromasia Present (Not Present); Platelet Estimate Marked Decrease (Normal)
[2021-08-19 04:31] LABS: Hepatitis B Surface Antigen Nonreactive (Nonreactive)
[2021-08-19 04:59] LABS: Hepatitis B Core IgM Nonreactive (Nonreactive)
[2021-08-19 05:01] LABS: Hepatitis A Antibody IgM Nonreactive (Nonreactive)
[2021-08-19] MEDS: Albumin 25% 25gram/100mL 25 GM/100 ML IV.SOLN IVPB SCH ×2 (05:54→14:17)
[2021-08-19] MEDS: Pantoprazole 40 MG VIAL IVP SCH ×2 (05:54→18:08)
[2021-08-19 07:27] LABS: Hepatitis C Virus Antibody Reactive (Nonreactive)
[2021-08-19] MEDS ORDERED: Cefepime HCl 2,000 MG in Water for inj. (sterile) 20 ML IVP SCH (08:30)
[2021-08-19] MEDS ORDERED: Levothyroxine 25 MCG TABLET PO SCH (09:00)
[2021-08-19] MEDS: Folic Acid 1 MG TABLET PO SCH (09:11)
[2021-08-19] MEDS ORDERED: *HR* Heparin 5,000 UNIT/ML VIAL IVP PRN (09:57)
[2021-08-19] MEDS ORDERED: PrismaSATE BGK 4/2.5 5,000 ML CRRT SCH ×2 (10:00)
[2021-08-19] MEDS ORDERED: *HR* Heparin 5,000 UNIT/ML VIAL ONE ×2 (14:37→17:52)
[2021-08-19] MEDS ORDERED: 0.9 % Sodium Chloride 2,000 ML ONE ×2 (15:17→16:27)
[2021-08-19] MEDS ORDERED: 0.9 % Sodium Chloride 500 ML ONE (15:42)
[2021-08-19 15:45] LABS: INR 6.1
[2021-08-19] MEDS: *HR* Dextrose 50 % in Water (Syg) 50 ML SYRINGE IVP PRN ×2 (16:00→23:21)
[2021-08-19] MEDS: Norepinephrine 4 MG/254 ML IV.SOLN IVC SCH ×3 (16:30→23:30)
[2021-08-19] MEDS ORDERED: Artificial Tears SOLN 15 ML BOTTLE BOTH EYES PRN ×2 (17:11→17:20)
[2021-08-19 17:12] LABS: Acetaminophen < 10 mcg/mL (10-20); Alanine Aminotransferase 9 Units/L (7-52); Albumin 3.3 g/dL (3.5-5.7); Albumin/Globulin Ratio 1.3 (1.1-2.2); Alkaline Phosphatase 471 Units/L (34-104); Aspartate Amino Transferase 57 Units/L (13-39); Bilirubin,Direct 2.4 mg/dL (0.0-0.2); Bilirubin,Indirect 1.2 mg/dL (0.0-1.0); Bilirubin,Total 3.6 mg/dL (0.3-1.0); Globulin 2.5 g/dL (2.4-3.5); Total Protein 5.8 g/dL (6.4-8.9)
[2021-08-19] MEDS ORDERED: Dexmedetomidine HCl 400 MCG/100 ML MLS IVC SCH (17:15)
[2021-08-19] MEDS ORDERED: FentaNYL (PF) 1,000 MCG/100 ML IV.SOLN IVC SCH (17:15)
[2021-08-19] MEDS ORDERED: Midazolam HCl 50 MG/100 ML IV.SOLN IVC SCH (17:30)
[2021-08-19] MEDS ORDERED: 0.9 % Sodium Chloride 1,000 ML ONE (17:52)
[2021-08-19] MEDS ORDERED: Famotidine 20 MG/2 ML VIAL IVP SCH (18:00)
[2021-08-19 18:06] LABS: BUN/Creatinine Ratio 16 (6-26); Blood Urea Nitrogen 61 mg/dL (6-20); Calcium 7.9 mg/dL (8.6-10.3); Carbon Dioxide 13 mEq/L (23-29); Chloride 95 mEq/L (98-107); Glucose 153 mg/dL (70-105); Magnesium 1.8 mg/dL (1.6-2.6); Osmolality,Calculated 288 (280-300); Potassium 3.7 mEq/L (3.5-5.1); Sodium 129 mEq/L (136-145); eGFR For African Americans 15 (> 60); eGFR For Non-African Americans 12 (> 60)
[2021-08-19] MEDS: MetroNIDAZOLE 500 MG/100 ML 500 MG/100 ML BAG IVPB SCH ×2 (18:09→23:22)
[2021-08-19 18:27] LABS: Troponin I 0.07 ng/mL (< 0.04)
[2021-08-19] MEDS ORDERED: Potassium Chloride 20 MEQ, Lidocaine 1% 2 ML in 0.9 % Sodium Chloride 250 ML IVPB ONE (18:28)
[2021-08-19 18:36] LABS: ABG Base Excess -19 mEq/L (-2 to 3); ABG HCO3 12 mEq/L (21-27); ABG Oxygen Saturation 100 % (95-98); ABG PCO2 57 mmHg (35-45); ABG PH 6.95 pH Units (7.32-7.45); ABG PO2 259 mmHg (85-104); ABG TCO2 14 mEq/L (20-26)
[2021-08-19] MEDS ORDERED: Amiodarone Premix 150 MG/100 ML BAG IVPB ONE (18:37)
[2021-08-19] MEDS ORDERED: Amiodarone Premix 360 MG/200 ML BAG IVC ONE (18:37)
[2021-08-19] MEDS ORDERED: Sodium Bicarbonate 150 MEQ in Water for inj. (sterile) 1,000 ML IVC SCH (18:45)
[2021-08-19] MEDS ORDERED: Artificial Tears SOLN 15 ML BOTTLE BOTH EYES SCH (20:00)
[2021-08-19 20:11] LABS: ABG Base Excess -18 mEq/L (-2 to 3); ABG HCO3 14 mEq/L (21-27); ABG Oxygen Saturation 83 % (95-98); ABG PCO2 64 mmHg (35-45); ABG PH 6.95 pH Units (7.32-7.45); ABG PO2 76 mmHg (85-104); ABG TCO2 16 mEq/L (20-26); Blood Gas VT 400 cc
[2021-08-19] MEDS: Artificial Tears SOLN 15 ML BOTTLE BOTH EYES SCH ×2 (20:11→23:22)
[2021-08-19 20:23] VITALS: TEMP 97.7
[2021-08-19 20:46] LABS: Hematocrit 27.8 % (35.3-44.9); Hemoglobin 7.3 g/dL (11.5-15.4); Mean Corpuscular HGB Conc 26.3 g/dL (31.6-35.5); Mean Corpuscular Hemoglobin 19.4 pg (28.0-33.3); Mean Corpuscular Volume 73.7 fL (83.0-100.0); Nucleated Red Blood Cells 2.7 /100 WBC (0); Red Blood Count 3.77 M/mcL (3.82-4.97); Red Cell Distribution Width 22.1 % (11.5-14.5); White Blood Count 11.3 K/mcL (4.3-11.1)
[2021-08-19 20:50] LABS: Platelet Count 26 K/mcL (140-400)
[2021-08-19] MEDS ORDERED: Chlorhexidine Rinse 15 ML MOUTHWASH MM SCH ×2 (21:00)
[2021-08-19 21:24] LABS: Eosinophils # 0.2 K/mcL (0.0-0.6); Hypochromasia Present (Not Present); Neutrophils # 8.1 K/mcL (1.6-8.9)
[2021-08-19 21:25] LABS: Platelet Estimate Marked Decrease (Normal)
[2021-08-19 23:08] LABS: VBG Ionized Calcium 1.05 mmol/L (1.15-1.35)
[2021-08-19 23:25] LABS: Calcium 7.9 mg/dL (8.6-10.3); Magnesium 2.4 mg/dL (1.6-2.6); Phosphorous 6.5 mg/dL (2.7-4.5); Potassium 4.4 mEq/L (3.5-5.1)
[2021-08-20] MEDS ORDERED: Amiodarone Premix 360 MG/200 ML BAG IVC SCH (00:37)
[2021-08-20 01:21] VITALS: BP 84/59; PULSE 67
[2021-08-20] MEDS: Albumin 25% 25gram/100mL 25 GM/100 ML IV.SOLN IVPB SCH (01:34)
[2021-08-20 02:02] VITALS: O2SAT 76
[2021-08-20 13:40] LABS: Acinetobacter baumannii by PCR Not Detected (Not Detect); Candida albicans by PCR Not Detected (Not Detect); Candida glabrata by PCR Not Detected (Not Detect); Candida krusei by PCR Not Detected (Not Detect); Candida parapsilosis by PCR Not Detected (Not Detect); Candida tropicalis by PCR Not Detected (Not Detect); Enterobacter cloacae Cmplx PCR Not Detected (Not Detect); Enterobacteriaceae by PCR DETECTED (Not Detect); Enterococcus by PCR Not Detected (Not Detect); Escherichia coli by PCR Not Detected (Not Detect); Klebsiella oxytoca by PCR Not Detected (Not Detect); Klebsiella pneumoniae by PCR Not Detected (Not Detect); Proteus by PCR Not Detected (Not Detect); Pseudomonas aeruginosa by PCR Not Detected (Not Detect); Serratia marcescens by PCR Not Detected (Not Detect); Staphylococcus aureus by PCR Not Detected (Not Detect); Staphylococcus by PCR Not Detected (Not Detect); Streptococcus agalactiae(B)PCR Not Detected (Not Detect); Streptococcus by PCR Not Detected (Not Detect); Streptococcus pneumoniae PCR Not Detected (Not Detect); Streptococcus pyogenes (A) PCR Not Detected (Not Detect)
[2021-08-20 21:57] LABS: Lambda Qnt Free Light Chains 103.41 mg/L (5.71-26.30)
[2021-08-21 14:42] LABS: Kappa Qnt Free Light Chains 158.01 mg/L (3.30-19.40)
[2021-08-22 20:45] LABS: Alpha 2 Globulin (PEP) 0.53 g/dL (0.48-1.05)
[2021-08-23 14:46] LABS: IFE Reflexed NOT DONE
== END 2021-08-20 02:45 | disposition expired | DRG 720 ==
LOC: 3ANU → 2NNU 12:51 → ICNU 08-19 12:58
PROVIDERS: ADMIT Internal Medicine; ATTEND Internal Medicine